=== PATIENT | female | born 1975 | race Caucasian/White ===

== ENCOUNTER → 2021-09-23 16:02 | Outpatient (CLI) | payer BC, SELFPAY ==
--- NOTE | 2021-09-23 16:04 | BI_ITS ---
MAMMOGRAPHY - BILATERAL SCREENING REASON FOR EXAM: Female, 46 years old. Routine annual screening examination. PERTINENT HISTORY: TECHNIQUE: Digital bilateral breast tay (3D mammographic acquisition) in the CC and MLO projections. 2-D mediolateral oblique (MLO) and craniocaudad (CC) views of both breasts were obtained. CAD: Full Field Digital Mammography with Computer Added Detection was performed. COMPARISON: Comparison is made with prior outside examination dated 10/20/2018. FINDINGS: Breast Composition: There are scattered areas of fibroglandular density. There are no dominant masses or suspicious calcifications. No other significant abnormalities are identified. There has been no significant change since the prior study. BI/SCRN MAMM (CAD)W/TAY BILAT IMPRESSION: Stable bilateral screening mammogram. Yearly follow-up mammogram recommended. (A) ASSESSMENT CATEGORY: BIRADS Category 1: Negative. A letter regarding these results will be sent to the patient by the facility within 30 days. Approximately 10% of breast cancers are not detected by mammography. A normal mammogram should not delay biopsy of a clinically suspicious abnormality. [id number] Electronically Signed: Trevor Torres MD at 13:01 EST , Service support ,
== END ==
PROVIDERS: PCP Internal Medicine; Referring Provider Internal Medicine; Visit Provider Internal Medicine
DX: Z12.31 Encounter for screening mammogram for malignant neoplasm of breast (principal)
CPT/HCPCS: 77063; 77067

== ENCOUNTER → 2023-01-28 | Outpatient (CLI) | payer OTHER, SELFPAY ==
--- NOTE | 2023-01-28 08:55 | RAD_ITS ---
STUDY: X-RAY - LUMBAR SPINE REASON FOR EXAM: Female, 47 years old. SACROILIITIS. Low back pain. TECHNIQUE: 5 view(s) of the lumbar spine were obtained including oblique views. COMPARISON: None FINDINGS: Normal lumbar lordosis. There is a minimal levoscoliosis of the lumbar spine. There is a normal alignment of the vertebrae. Moderate degree of disc space narrowing at the L5-S1 level with the spondylolisthesis. The soft tissue structures are unremarkable. RAD/L/S Spine Min 4 Views IMPRESSION: Degenerative changes of the spine, as detailed above. Electronically Signed: Trevor Torres MD at 12:35 EDT ,
[2023-01-28 10:01] LABS: AST(SGOT) 40 U/L (15-37); Alanine Aminotransfer ALT/SGPT 58 U/L (13-56); Albumin, Serum 3.8 g/dL (3.2-5.0); Alkaline Phosphatase 108 U/L (45-117); Anion Gap 7 (5-15); BUN 14 mg/dL (7-18); BUN/Creat Ratio 15.6 RATIO (10-20); Calcium,Total 9.3 mg/dL (8.5-10.1); Chloride 106 mmol/L (98-107); Cholesterol 226 mg/dL (200); EST Glomerular Filtration Rate 72 mL/min (>60); Est Glom Filt Rate - Afr Amer 87 mL/min (>60); Globulin 3.9 g/dL (2.2-4.2); Glucose 90 mg/dL (74-106); High Density Lipoprotein 60 mg/dL; Potassium 4.3 mmol/L (3.5-5.1); Protein, Total 7.7 g/dL (6.4-8.2); Sodium Level 141 mmol/L (136-145); Triglycerides 100 mg/dL; Very Low Density Lipoprotein 20 mg/dL (5-40)
[2023-01-28 10:04] LABS: Vitamin D,25 Hydroxy 22.2 ng/mL
== END | disposition home or self-care (01) ==
PROVIDERS: PCP Nurse Practitioner Primary Care; Referring Provider Nurse Practitioner Primary Care; Visit Provider Nurse Practitioner Primary Care
DX: M46.1 Sacroiliitis, not elsewhere classified (principal); Z13.9 Encounter for screening, unspecified; M60.9 Myositis, unspecified; M47.896 Other spondylosis, lumbar region; M99.03 Segmental and somatic dysfunction of lumbar region; M99.05 Segmental and somatic dysfunction of pelvic region; M99.02 Segmental and somatic dysfunction of thoracic region; M99.01 Segmental and somatic dysfunction of cervical region
CPT/HCPCS: 36415; 72110; 80053; 80061; 82306

== ENCOUNTER → 2023-02-08 | Outpatient (CLI) | payer OTHER, SELFPAY ==
--- NOTE | 2023-02-08 08:33 | BI_ITS ---
MAMMOGRAPHY - BILATERAL SCREENING REASON FOR EXAM: Female, 47 years old. Routine annual screening examination. PERTINENT HISTORY: Non-contributory. TECHNIQUE: Digital bilateral breast tay (3D mammographic acquisition) in the CC and MLO projections. 2-D mediolateral oblique (MLO) and craniocaudad (CC) views of both breasts were obtained. CAD: Full Field Digital Mammography with Computer Added Detection was performed. COMPARISON: Comparison is made with prior study dated September 23, 2021. FINDINGS: Breast Composition: There are scattered areas of fibroglandular density. There are no dominant masses or suspicious calcifications. No other significant abnormalities are identified. There has been no significant change since the prior study. BI/SCRN MAMM (CAD)W/TAY BILAT IMPRESSION: Stable bilateral screening mammogram. Yearly follow-up mammogram recommended. (A) ASSESSMENT CATEGORY: BIRADS Category 1: Negative. A letter regarding these results will be sent to the patient by the facility within 30 days. Approximately 10% of breast cancers are not detected by mammography. A normal mammogram should not delay biopsy of a clinically suspicious abnormality. [id number] Electronically Signed: Trevor Torres MD at 10:13 EDT ,
== END | disposition home or self-care (01) ==
PROVIDERS: PCP Nurse Practitioner Primary Care; Referring Provider Nurse Practitioner Primary Care; Visit Provider Nurse Practitioner Primary Care
DX: Z12.31 Encounter for screening mammogram for malignant neoplasm of breast (principal)
CPT/HCPCS: 77063; 77067

== ENCOUNTER 2023-10-25 08:04 | Day surgery (SDC) | payer OTHER, SELFPAY ==
[2023-10-25] VITALS (7 sets, daily range): BP systolic 93–121; BP diastolic 51–95; PULSE 55–65; RESP 16; TEMP 36.6–37.2; O2SAT 96–100; BMI 34.4
--- NOTE | 2023-10-25 | COLBX_PTH ---
PATHOLOGY RESULTS PATIENT: KELSEY SNOW LOC: EN U#:[id number] AGE/SX: 48/F ROOM: RE10/25/[address]: Dr. Vladimir Marquez MD : 1975 BED: DIS: 10/25/2023 SPEC #: [id number] RECD: 10/25/23 12:58 STATUS: ALL REYaakov #: [id number] SHARLA: 10/25/23 00:[address]: Vladimir Marquez DEPT: SURGICAL PATHOLOGY RECD BY: Phil Grey ENTERED: 10/25/23 12:58 SP TYPE: COLON BX OTHR DR: ZAMZAM CACERES Tissues: COLON BIOPSY Procedures: Surgery Specimen Level IV HEADER OPERATION: Colonoscopy - open access with polypectomy PRE-OP DIAGNOSIS: Screening TISSUE SUBMITTED: Hepatic flexure polyp MICROSCOPIC DIAGNOSIS Hepatic flexure polyp, polypectomy: Hyperplastic polyp. SJ:partha 10/26/2023 MICROSCOPIC DESCRIPTION Slides are reviewed. GROSS DESCRIPTION Received in fixative is one container labeled with the patient's name and designated hepatic flexure polyp. The specimen consists of one irregular fragment of [place] soft tissue that measures 0.3 x 0.2 x 0.1 cm. The specimen is totally submitted in one cassette. / SJ:partha 10/25/2023 TC:1 CPT: 74199
[2023-10-25 08:30] LABS: Internal QC Validated? YES +Cl - CLEAR BKGD; Pregnancy, Urine Negative Negative; Record Kit Lot#,Urine Preg HCG0000718086
--- OUTSIDE RECORDS SUMMARY | 2023-10-25 08:33 | XMS RPT_ITS | CCD ---
Author Name Unknown Address [facility] [address] [place] [address] Organization [facility] Care Team Providers Care Crocheter Name Role Phone JEFFY CONDE, LAWRENCE Primary Care Physician LAWRENCE ALEXANDER Attending LAWRENCE Borja Primary Care Jessie muniz Allergies Allergy Classification Reported Allergen(s) Allergy Type Date of Onset Reaction(s) Facility (1 source) Sulfonamides (Antibiotic); Translations: [sulfa drugs] Drug [facility] Medications Current Medications Medication Drug Class(es) Dates Sig (Normalized) Sig (Original) acetaminophen 500 mg oral powder (1 source) Start: 01-15-2023 take 1 dose by mouth twice daily Tylenol Extra Strength 500 mg oral powder Dose : 2 mg =, Oral, BID, 0 Refill(s) Start Date: 01/15/23 Status: Ordered cetirizine hydrochloride 10 mg oral tablet (1 source) Histamine-1 Receptor Antagonist Start: 01-15-2023 Zyrtec 10 mg oral tablet Dose : 10 mg = 1 tab(s), Oral, qDay, # 30 tab(s), 0 Refill(s) Start Date: 01/15/23 Status: Ordered citalopram 40 mg oral tablet (1 source) Serotonin Reuptake Inhibitor Start: 01-15-2023 End: 07-14-2023 citalopram 40 mg oral tablet Dose : 40 mg = 1 tab(s), Oral, qDay, Take half tab (20mg) daily for first 1 week, if well tolerated may increase to full tab (40mg), # 90 tab(s), 1 Refill(s), Pharmacy: [id number], 161.7, cm, 01/15/23 9:33:00 EDT, Height Start Date: 01/15/23 Stop Date: 07/14/23 Status: Ordered ibuprofen 200 mg oral capsule (1 source) Nonsteroidal Anti-inflammatory Drug Start: 01-15-2023 ibuprofen 200 mg oral capsule See Instructions, takes 800mg PRN for pain, 0 Refill(s) Start Date: 01/15/23 Status: Ordered Problems Problem Classification Problem Date Documented Date Episodic/Chronic Fracture of lower limb (1 source) Fracture of ankle 01-15-2023 Episodic Other complications of ; puerperium affecting management of mother (1 source) Deliveries by 01-15-2023 Episodic Other female genital disorders (2 sources) Other specified noninflammatory disorders of vagina; Translations: [Other specified noninflammatory disorders of vagina] Onset: 01-15-2023 Episodic Other screening for suspected conditions (not mental disorders or infectious disease) (2 sources) Encounter for screening for malignant neoplasm of cervix; Translations: [Encounter for screening for malignant neoplasm of cervix] Onset: 01-15-2023 Episodic Retinal detachments; defects; vascular occlusion; and retinopathy (1 source) Retinal detachment 01-15-2023 Episodic Spondylosis; intervertebral disc disorders; other back problems (1 source) Sciatica 01-16-2023 Episodic Unclassified (1 source) Tubal ligation done 01-15-2023 Results Test Name Value Interpretation Reference Range Facil ity Encounters Encounter Date Encounter Type Care Provider Facility Start: 01-15-2023 End: 01-20-2023 ambulatory LAWRENCE BARDALES APRN-ABEL Facility:B Start: 01-15-2023 End: 01-19-2023 Outreach Lab LAWRENCE BARDALES APRN-DECORATIVE [employer] Procedures Date Procedure Procedure Detail Performing Clinician Start: 01-18-2014 Repair of retina for retinal detachment LAWRENCE BARDALES APRN-DECORATIVE [employer] Immunizations Immunization Date Immunization Notes Care Provider Ling ellis 08-06-2022 influenza virus vaccine, unspecified formulation LAWRENCE BARDALES APRN-DECORATIVE [employer] [facility] [place] 10-30-2020 SARS-CoV-2 (COVID-19 ) mRNA-1273 vaccine LAWRENCE BARDALES DIRECTOR OF PLANNING-DECORATIVE [employer] [facility] [place] 10-04-2020 SARS-CoV-2 (COVID-19 ) mRNA-1273 vaccine LAWRENCE BARDALES DIRECTOR OF PLANNING-DECORATIVE [employer] [facility] [place] Payers Date Payer Category Payer Private Health Insurance [id number] 1975 Unknown [id number] Social History Date Type Detail Facility Start: 01-15-2023 Tobacco smoking status Never s moked tobacco (finding) [facility] [place] Sex Assigned At Sex [facility] Clinical Note 01-17-2023 Note Date & Type Note Facility 01-17-2023 Note . MICRO - Microbiology PROCEDURE: Affirm Pathogens DNA Direct Probe [*1] SOURCE: Vaginal Fluid BODY SITE: Vaginal Wall COLLECTED DATE/TIME: 01/15/2023 10:53 EDT RECEIVED DATE/TIME: 01/16/2023 18:39 EDT START DATE/TIME: 01/16/2023 18:40 EDT FREE TEXT SOURCE: FINAL REPORTS Final Report [] Verified Date/Time/Personnel: 01/17/2023 15:06 EDT Yamilex species DNA Probe Negative Gardnerella vaginalis DNA Probe Negative Trichomonas vaginalis DNA Probe Negative Performing Locations *1: This test was performed at: [facility], [address] [place] [address], [phone] , [facility] ([place]) Evaluation + Plan note 01-15-2023 LaboratoryRadiology Note Date & Type Note Facility 01-15-2023 Evaluation + Plan note Diagnostic Tests PendingHPV Screen, DNA Probe 01/15/23 Future Scheduled TestsLipid Profile 01/15/23Vitamin D Level 01/15/23Complete Metabolic Panel 01/15/23MA Mammo Screening Bilateral w/ Maged 01/15/23 [facility] Hospital course Narrative Note Date & Type Note Facility Hospital course Narrative No data available for this section [facility] Hospital Discharge instructions Note Date & Type Note Facility Hospital Discharge instructions No data available for this section [facility] Progress note Note Date & Type Note Facility Progress note No data available for this section [facility] Summary Purpose Family History No Family History Records FoundNo Family History Records Found Advance Directives No Advanced Directives Records FoundNo Advanced Directives Records Found Additional Source Comments INFORMATION SOURCE (unrecogn ized section and content) DATE CREATED AUTHOR AUTHOR'S ORGANIZ ATION 01/21/2023 [facility] ([place]) Patient Care team informatio n (unrecognized section and content) Care Team Personnel Name: LAWRENCE BARDALES APRN-ABEL Position: P4 Advanced Trimming Machine Set Up Operator Member Role: Primary Care Physician Address: Address: [address] [place] [address] [place] [address] [place] Care Team Related Persons Name: CHAYO SHARIF Address: Home [address] [place] [id number] Address: [address] [phone] FOR RECORDS PERTAINING TO PATIENTS WHO ARE OR HAVE BEEN ENROLLED IN A CHEMICAL DEPENDENCY/SUBSTANCEABUSE PROGRAM, SOME INFORMATION MAY BE OMITTED. This clinical summary was aggregated from multiple sources. Caution should be exercised in using it in the provision of clinical care. This summary normalizes information from multiple sources, and as a consequence, information in this document may materially change the coding, format and clinical context of patient data. In addition, data may be omitted in some cases. CLINICAL DECISIONS SHOULD BE BASED ON THE PRIMARY CLINICAL RECORDS. The [facility]. provides no warranty or guarantee of the accuracy or completeness of information in this document.
[2023-10-25] MEDS: Lactated Ringers 1,000 ML 15 ML IV (08:44)
--- NOTE | 2023-10-25 09:02 | H&P.OPEN ---
HPI - General HPI Narrative KLESEY SNOW, is a 48 F who presents for screening colonoscopy. The patient reports no abdominal pain or blood in her stool. She has no family history of colon cancer. She has never had a colonoscopy. [facility] Medical History Anxiety Anxiety and depression Gastric reflux High cholesterol History of stress test Non-smoker Recurrent cold sores Sciatica Seasonal allergies Home Medications cetirizine 10 mg capsule (Zyrtec) 10 mg PO DAILY 05/15/21 [History Last Taken Unknown] acetaminophen 500 mg tablet (Tylenol Extra Strength) 500 mg PO BID PRN pain 09/28/23 [History Last Taken Unknown] famotidine 20 mg tablet (Pepcid) 20 mg PO DAILY 09/28/23 [History Last Taken Unknown] ibuprofen 200 mg capsule 800 mg PO Q6H PRN pain 09/28/23 [History Last Taken Unknown] omega-3 fatty acids-fish oil 360 mg-1,200 mg capsule (Fish Oil) 1 cap PO DAILY 09/28/23 [History Last Taken Unknown] acyclovir 400 mg tablet 400 mg PO BID PRN cold sores 10/21/23 [History Last Taken Unknown] cholecalciferol (vitamin D3) 50 mcg (2,000 unit) capsule (Vitamin D3) 50 mcg PO DAILY 10/21/23 [History Last Taken Unknown] citalopram 20 mg tablet 40 mg PO DAILY 10/21/23 [History Last Taken Unknown] Allergy/AdvReac Type Severity Reaction Status Date / Time Sulfa (Sulfonamide Allergy Mild Hives Verified 10/25/23 08:31 Antibiotics) Family History (Updated 09/28/23 @ 08:46 by Shobha Shin) Mother Lung cancer Father Lung cancer Thyroid disorder Grandfather Lung cancer Grandmother Lung cancer Colon polyps Other CVA (cerebral vascular accident) Depression Surgical History History of History of tubal ligation Hx of detached retina repair Social History (Updated 09/28/23 @ 08:47 by Shobha Shin) household members: children current occupational status: employed current occupation: Hospice nurse Smoking Status: Never smoker alcohol intake: current alcohol intake frequency: a few times a month Alcohol type: beer substance use type: does not use what type of physical activity do you participate in: none Past Medical/Surgical History Planned Operation Planned Operative Procedure/s: COLONOSCOPY Previous Hospitalizations/Surgeries HX Hospitalizations: No Any Problems With Anesthesia: No You/Your Family Experience Fever (Hyperthermia) With Anes: No Cholinesterase deficiency: No Cardiovascular Hx Hypertension: No Respiratory Hx Sleep Apnea: No Hx Respiratory Tract Infection/Cold (presently): No Do You Snore Loudly (louder than talking or can be heard): No Do You Often Feel Tired/ Fatigued/ Sleepy Dring Daytime?: No Has Anyone Observed You Stop Breathing During Sleep?: No Result (for STOP score): Negative Smoking Status: Never smoker Neurological Does patient have nerve stimulator: No Reproduction : No Miscellaneous Recent Exposure to Contagious Disease: No Allergies Sulfa (Sulfonamide Antibiotics) Allergy (Mild, Verified 10/25/23 08:31) Hives And Rash Discharge Is Pt Admitted From a Assisted, or a Halfway: No Who Could Help: CHAYO After D/C, Where Do you Plan to Go: Return Home Vital Signs Vital Signs Vital Signs: 10/25/23 08:32 10/25/23 08:32 Temperature 99 F Temperature Source Temporal Pulse Rate 58 L Respiratory Rate 16 Respiratory Pattern Normal Blood Pressure 121/77 H Blood Pressure Mean 91 Blood Pressure Source Monitor Blood Pressure Position Semi-Fowlers Blood Pressure Location Left Arm Pulse Ox 99 Oxygen Delivery Method Room Air Weight Weight: 200 lb 9.93 oz Body Mass Index (BMI) 34.4 Physical Exam Const alert and oriented x3 HEENT normocephalic Eyes PERRL Resp normal respiratory effort and normal air movement Cardio regular rate and regular rhythm GI soft to palpation, non-tender and non-distended Extremity normal to inspection Assessment & Plan Assessment/Plan (1) Encounter for screening for malignant neoplasm of colon: PLAN: I explained endoscopy in detail to the patient. I explained the risks including but not limited to stroke or heart attack with anesthesia, perforation of the GI tract, bleeding, infection. I explained that any of these could necessitate further emergency surgery. The patient understands and all questions were answered sufficiently. The patient wishes to proceed with procedure. Vladimir Marquez MD Pager: [facility] [address] [place] [address], [address] [place] [address] Office: Surgery Risks - Colonoscopy Risks Include but are not Limited To: Risks include but are not limited to: Bleeding, perforation requiring further surgery, inability to complete colonoscopy requiring barium enema.
--- NOTE | 2023-10-25 09:36 | OP.COLON_ITS ---
Patient Name: Gemini Lindsay Procedure Date: 10/25/2023 9:05 AM Date of : 1975 Age: 48 Procedure: Colonoscopy Indications: Screening for colorectal malignant neoplasm Providers: Vladimir Marquez MD Medicines: Monitored Anesthesia Care Patient Profile: This is a 48 year old female. Refer to note in patient chart for documentation of history and physical. Last Colonoscopy: none. The patient's first colonoscopy is today. Complications: No immediate complications. Procedure: Pre-Anesthesia Assessment: - Prior to the procedure, a History and Physical was performed, and patient medications and allergies were reviewed. The patient's tolerance of previous anesthesia was also reviewed. The risks and benefits of the procedure and the sedation options and risks were discussed with the patient. All questions were answered, and informed consent was obtained. Prior Anticoagulants: The patient has taken no anticoagulant or antiplatelet agents. After reviewing the risks and benefits, the patient was deemed in satisfactory condition to undergo the procedure. After I obtained informed consent, the scope was passed under direct vision. Throughout the procedure, the patient's blood pressure, pulse, and oxygen saturations were monitored continuously. The Colonoscope was introduced through the anus and advanced to the cecum, identified by appendiceal orifice and ileocecal valve. The colonoscopy was performed without difficulty. The patient tolerated the procedure well. The quality of the bowel preparation was good. The ileocecal valve, appendiceal orifice, and rectum were photographed. Scope In: 9:12:47 AM Scope Withdrawal Time 0 hours 6 minutes 28 seconds Scope Out: 9:23:19 AM Total Procedure Duration Time 0 hours 10 minutes 32 seconds Findings: A small polyp was found in the hepatic flexure. The polyp was removed with a hot snare. Resection and retrieval were complete. The exam was otherwise without abnormality on direct and retroflexion views. Impression: - One small polyp at the hepatic flexure, removed with a hot snare. Resected and retrieved. - The examination was otherwise normal on direct and retroflexion views. Recommendation: - Discharge patient to home. - Resume previous diet. - Continue present medications. - Await pathology results. - Repeat colonoscopy in 5 years for surveillance based on pathology results. Procedure Code(s): --- Professional --- 30642, Colonoscopy, flexible; with removal of tumor(s), polyp(s), or other lesion(s) by snare technique Diagnosis Code(s): --- Professional --- Z12.11, Encounter for screening for malignant neoplasm of colon D12.3, Benign neoplasm of transverse colon (hepatic flexure or splenic flexure) CPT copyright 2021 [employer]. All rights reserved. The codes documented in this report are preliminary and upon award machine operator review may be revised to meet current compliance requirements. Vladimir Marquez MD 10/25/2023 9:35:52 AM This report has been signed electronically. Number of Addenda: 0 Note Initiated On: 10/25/2023 9:05 AM
--- NOTE | 2023-10-25 09:36 | OP.CCLET_ITS ---
10/25/2023 Vear Daniel Re : Colonoscopy procedure for Gemini Lindsay Dear Carrie This procedure was performed on Wednesday, October 25, 2023. My impressions and recommendations are as follows: Impressions : - One small polyp at the hepatic flexure, removed with a hot snare. Resected and retrieved. - The examination was otherwise normal on direct and retroflexion views. Recommendations : - Discharge patient to home. - Resume previous diet. - Continue present medications. - Await pathology results. - Repeat colonoscopy in 5 years for surveillance based on pathology results. My findings are described in the full procedure note, which is enclosed. If I can be of further assistance, please feel free to contact me at Doctor phone number(s): , Work: . Sincerely, Vladimir Marquez MD 10/25/2023 9:35:52 AM This report has been signed electronically.
== END 2023-10-25 10:27 | disposition home or self-care (01) ==
LOC: EN 08:05 → AC 08:39
PROVIDERS: Anesthesiology; PCP Nurse Practitioner Adult Health; Referring Provider Nurse Practitioner Adult Health; Visit Provider Surgery
PROC: 0DJD8ZZ Inspection of Lower Intestinal Tract, Via Natural or Artificial Opening Endoscopic (ICD-10-PCS; CPT 45378; principal; 2023-10-25 09:10)
DX: Z12.11 Encounter for screening for malignant neoplasm of colon (principal); K63.5 Polyp of colon; E78.00 Pure hypercholesterolemia, unspecified; K21.9 Gastro-esophageal reflux disease without esophagitis; Z79.899 Other long term (current) drug therapy
CPT/HCPCS: 45385; 81025; 88305; J7120; J2405